=== PATIENT | female | born 1940 | race Caucasian/White ===

== ENCOUNTER → 2019-12-31 10:25 | Outpatient (BNVA) | payer MEDICARE, SELFPAY | PROVIDERS: Family Provider Family Medicine; PCP Family Medicine; Visit Provider Family Medicine | DX: E78.1 Pure hyperglyceridemia (principal); E89.0 Postprocedural hypothyroidism; I10 Essential (primary) hypertension; Z85.3 Personal history of malignant neoplasm of breast; M81.0 Age-related osteoporosis without current pathological fracture; M25.569 Pain in unspecified knee; G89.29 Other chronic pain; Z68.35 Body mass index [BMI] 35.0-35.9, adult; Z79.899 Other long term (current) drug therapy | CPT/HCPCS: 80053; 80061; 83036; 84439; 84443; 84481; 85025 ==

== ENCOUNTER → 2020-03-08 11:57 | Outpatient (BNVA) | payer MEDICARE, SELFPAY | PROVIDERS: Family Provider Family Medicine; PCP Family Medicine Adult Medicine; Visit Provider Family Medicine Adult Medicine | DX: E78.1 Pure hyperglyceridemia (principal); I10 Essential (primary) hypertension; E03.8 Other specified hypothyroidism; E66.9 Obesity, unspecified; Z68.30 Body mass index [BMI] 30.0-30.9, adult; Z79.899 Other long term (current) drug therapy | CPT/HCPCS: 80053; 80061; 84443; 85025 ==

== ENCOUNTER 2020-08-27 00:16 | Emergency (ER) | payer MEDICARE, SELFPAY ==
[2020-08-27 00:28] VITALS: BP 194/76; PULSE 71; RESP 18; TEMP 36.4; O2SAT 96; BMI 34.4
--- NOTE | 2020-08-27 01:10 | W.ED.EXTPRO ---
HPI - Extremity Problem General: Chief complaint: Extremity Problem,Nontraumatic Stated complaint: left leg pain Time Seen by Provider: 08/27/20 01:10 Source: patient Mode of arrival: ambulatory Limitations: no limitations History of Present Illness: HPI Narrative: 80-year-old female comes in today with complaints of left thigh pain. Patient does occasionally get leg cramps. Patient uses [id number] oral medication for leg cramps. Patient also takes her multivitamins. Patient has medical problems with coronary artery disease, hypothyroidism, osteoarthritis, hypertriglyceridemia, and hypertension. Patient appears chronically ill. Patient appears no acute distress. Patient appears in mild pain now. MD Complaint: extremity pain Onset (ago): hour(s) Pain Consistency: intermittent Location: left and lower extremity Quality: other (Cramping) Review of Systems General: Reports: 10 or more systems reviewed and unremarkable except in HPI and below Musc: Reports: other (Leg cramps) [facility] ED PFSH: Medical History (Updated 08/27/20 @ 01:39 by VIVIANA Siddiqui) Biceps rupture, distal CAD (coronary artery disease) Encounter for annual wellness exam in Medicare patient History of breast cancer Hypertension Hypertriglyceridemia Hypothalamic hypothyroidism Obesity (BMI 30-39.9) Osteoarthritis involving multiple joints on both sides of body Osteoporosis Surgical History History of mastectomy History of thyroidectomy, total History of tonsillectomy Social History Smoking and tobacco status: never smoked Alcohol intake: never Physical Exam Const: COMMON NORMALS: no acute distress and patient oriented x3 GENERAL APPEARANCE: cooperative HENMT: COMMON NORMALS: normocephalic and Normal external nose present HEAD & SCALP: normal to inspection and normocephalic NOSE: Normal external nose present Eye: GENERAL EYE: appearance normal, both eyes and all related structures Neck/C-Spine: COMMON NORMALS: full ROM Chest: COMMONS NORMALS: normal inspection of the chest Resp: COMMON NORMALS: normal respiratory effort EFFORT & INSPECTION: Yes able to speak in complete sentences Cardio: COMMON NORMALS: regular rate and regular rhythm RATE: regular rate RHYTHM: regular rhythm GI: COMMON NORMALS: non-tender : COMMON NORMALS: Yes no CVA tenderness BLADDER/KIDNEY EXAM: Yes no CVA tenderness Back/Pelvis: COMMON NORMALS: no CVA tenderness and thoracic and lumbar spine normal to inspection Extremity: COMMON NORMALS: normal to inspection NARRATIVE EXTREMITY EXAM: Patient moves left leg without any difficulty. Does have some mild tenderness on palpation to the thigh but also is similar in response with the right upper leg also. Small areas of good bruising is noted to both legs. Neuro: COMMON NORMALS: patient oriented x3 and moves all extremities Psych: COMMON NORMALS: mental status grossly normal and cooperative Skin: COMMON NORMALS: no rashes or lesions noted GENERAL SKIN EXAM: no rashes or lesions noted Course Vital Signs: Vital signs: Vital Signs Temperature 97.6 F 08/27/20 00:28 Pulse Rate 78 08/27/20 01:28 Respiratory Rate 18 08/27/20 00:28 Blood Pressure 194/76 08/27/20 00:28 Pulse Oximetry 96 08/27/20 00:28 MDM - Extremity (Nontraumatic) MDM Narrative: Medical decision making narrative: Patient comes in today for complaints of leg cramps to the left upper leg. Patient reports that the leg cramp has resolved. On exam patient has some areas of bruising to both expect lower extremities. Patient reports that she does get leg cramps often in both legs. Patient appears chronically ill. Patient appears no acute distress. Exam is unremarkable. Patient moves all extremities well. Differential diagnosis includes restless leg syndrome, electrolyte disturbance, claudication. Patient had good equal bilateral distal pulses in the dorsalis pedis area. No signs of redness or swelling was noted to the extremities. No signs of significant claudication was noted. Laboratory values were normal. Reviewed exam with patient with recommendations for follow-up or return to the ER. Patient reported understanding agreed to plan. Lab Data: Labs: Lab Results 08/27/20 Range/Units 01:40 Sodium 139 (136-145) mmol/L Potassium 3.5 (3.5-5.1) mmol/L Chloride 100 (98-107) mmol/L Carbon Dioxide 29 (22-29) mmol/L Anion Gap 13.5 (5-19) BUN 26 H (8-23) mg/dL Creatinine 1.0 H (0.5-0.9) mg/dL GFR Calculation Not Reportable Glucose 126 H (65-115) mg/dL Calculated Osmolal ity 294 (285-295) mOsm/k g Calcium 9.1 (8.5-10.5) mg/dL Magnesium 2.1 (1.7-2.3) mg/dL Discharge Plan Discharge Patient Disposition: Home Clinical Impression: Nocturnal leg cramps Condition: Stable Prescriptions: No Action meclizine 25 mg tablet,chewable 25 mg PO DAILY RF: 0 calcium-vitamin D2-iron Tablet PO RF: 0 vitamin B complex [B Complex-Vitamin B12] Tablet 1 tab PO DAILY RF: 0 quinine-vitamin E Capsule PO RF: 0 cholecalciferol (vitamin D3) 125 mcg (5,000 unit) capsule 125 mcg PO DAILY RF: 0 magnesium 250 mg tablet 250 mg PO DAILY RF: 0 Centrum Complete 18-400 mg-mcg tablet 1 tab PO DAILY RF: 0 acetaminophen [Tylenol] 325 mg capsule 325 mg PO QID PRNRF: 0 calcium carbonate [Calcium 500] 500 mg calcium (1,250 mg) tablet 500 mg PO DAILY 90 Days Qty: 90 RF: 3 hydrochlorothiazide 50 mg tablet 50 mg PO DAILY 90 Days Qty: 90 RF: 1 irbesartan 300 mg tablet 300 mg PO DAILY 90 Days Qty: 90 RF: 1 labetalol 200 mg tablet 200 mg PO BID 90 Days Qty: 180 RF: 1 levothyroxine 125 mcg tablet 125 mcg PO DAILY 90 Days Qty: 90 RF: 1 nitroglycerin 0.4 mg tablet, sublingual 0.4 mg SUBLINGUAL Q5M PRN (Reason: chest pain) Qty: 20 RF: 0 potassium chloride 10 mEq capsule, extended release 10 meq PO DAILY 90 Days Qty: 90 RF: 1 gemfibrozil 600 mg tablet 600 mg PO DAILY Qty: 30 RF: 5 hydrocodone-acetaminophen 5-325 mg tablet 1 tab PO DAILY PRN (Reason: moderate to severe pain) 30 Days Qty: 30 RF: 0 anastrozole 1 mg tablet 1 mg PO DAILY 90 Days Qty: 90 RF: 3 Discharge Orders: Discharge ED (Routine); Ordered 08/27/20 Ordered By: Darrell Marrero Referrals: Charly Fowler MD [Primary Care Provider] - Flaquita Zimmerman DO [Family Provider] - Patient Instructions: Leg Cramps (ED), Opioid Safety Activity Restrictions/Additional Instructions: Activity as tolerated. Gentle stretching and range of motion exercises prior to going to bed. Sometimes pedaling a stationary bike may assist with blood flow and help with leg cramps in the evening hours. Follow-up with primary care for further treatment. Return to the emergency department for new concerns. Coding Level of Care Code ED Creative Services Specialist for Summer Royal Exam Comprehensive
[2020-08-27 01:28] VITALS: PULSE 78
[2020-08-27 02:09] LABS: Anion Gap 13.5 (5-19); Blood Urea Nitrogen 26 mg/dL (8-23); Calcium 9.1 mg/dL (8.5-10.5); Carbon Dioxide 29 mmol/L (22-29); Chloride 100 mmol/L (98-107); Glucose 126 mg/dL (65-115); Magnesium 2.1 mg/dL (1.7-2.3); Osmolality Calculated 294 mOsm/kg (285-295); Potassium 3.5 mmol/L (3.5-5.1); Sodium 139 mmol/L (136-145)
[2020-08-27 02:47] VITALS: PULSE 81; RESP 16; O2SAT 97
== END 2020-08-27 02:47 | disposition home or self-care (01) ==
PROVIDERS: Emergency Provider Nurse Practitioner Family; Family Provider Family Medicine; PCP Family Medicine Adult Medicine
DX: G47.62 Sleep related leg cramps (principal); I25.10 Atherosclerotic heart disease of native coronary artery without angina pectoris; Z85.3 Personal history of malignant neoplasm of breast; I10 Essential (primary) hypertension
CPT/HCPCS: 80048; 83735; 99282

== ENCOUNTER → 2020-09-07 08:27 | Outpatient (BNVA) | payer MEDICARE, SELFPAY | PROVIDERS: Family Provider Family Medicine; PCP Family Medicine Adult Medicine; Referring Provider Family Medicine Adult Medicine; Visit Provider Specialist | DX: S46.219A Strain of muscle, fascia and tendon of other parts of biceps, unspecified arm, initial encounter (principal); X58.XXXA Exposure to other specified factors, initial encounter | CPT/HCPCS: 73080 ==

== ENCOUNTER → 2020-11-09 11:17 | Outpatient (BNVA) | payer MEDICARE, SELFPAY | PROVIDERS: Family Provider Family Medicine; PCP Family Medicine Adult Medicine; Visit Provider Family Medicine Adult Medicine | DX: E78.1 Pure hyperglyceridemia (principal); I25.10 Atherosclerotic heart disease of native coronary artery without angina pectoris; M25.569 Pain in unspecified knee; N18.2 Chronic kidney disease, stage 2 (mild); G89.29 Other chronic pain; M15.9 Polyosteoarthritis, unspecified; I10 Essential (primary) hypertension; E03.8 Other specified hypothyroidism | CPT/HCPCS: 80053; 80061; 84443 ==

== ENCOUNTER 2020-12-08 09:44 | Emergency (ER) | payer MEDICARE, SELFPAY ==
[2020-12-08 10:11] VITALS: BP 203/81; PULSE 78; RESP 16; TEMP 36.9; O2SAT 96; BMI 32.0
--- NOTE | 2020-12-08 12:29 | CT_ITS ---
WS: [id number] CT kidney stone [id number] REASON FOR EXAM: R sided abdominal/back pain IV CONTRAST ADMINISTERED: Noncontrast TOTAL EXAM DLP: 1211.[address] scans at [facility] use at least one of these dose optimization techniques: automat ed exposure control; mA and/or kV adjustment per patient size (includes targeted exams where dose is matched to clinical indication); or iterative reconstruction. FINDINGS: ABDOMEN: The unenhanced liver demonstrates multiple well-defined low-attenuation lesions within the liver 9 to 20 mm in diameter. They're found in both the left and right lobes the liver. In addition there is a thick dense circular calcification in the posterior aspect of the lower right lobe of the liver. The pancreas and spleen are unremarkable. The gallbladder has been surgically removed. Adrenal glands are normal. No intrarenal calculi, renal mass, or hydronephrosis. 4 mm hyperdense cyst in the right kidney, not significant. No abdominal mass, adenopathy, focal fluid collection, or free fluid. No bowel abnormality is identified. A normal appendix is not identified. 5 x 5 cm defect in the anterior abdominal wall with herniation of fat under the umbilicus. Pelvis: No mass, adenopathy, focal fluid collection, or free fluid is identified in the pelvis. The urinary bladder has a thickened wall without focal lesion. There are degenerative changes in the hips and the lumbar spine. No focal bone lesion. CT/CT kidney stone [id number] IMPRESSION: No urinary tract calculi identified. A normal appendix is not identified however no inflammatory changes are seen in the right lower quadrant. Calcified lesion in the liver is not significant likely representing a scleroti c cavernous hemangioma. The multiple liver lesions could represent multiple cys ts and/or cavernous hemangiomas, however no liver abnormality is identified on the review of previous ultrasound of the abdomen and CT scan of the abdomen in July 2018. Therefore these lesions would be suspect for metastatic disease.
--- NOTE | 2020-12-08 12:30 | ED_ITS ---
HPI - Abdominal Pain General: Chief Complaint: Abdominal Pain Stated Complaint: ABD PAIN Time Seen by Provider: 12/08/20 12:17 Source: patient Mode of arrival: ambulatory Limitations: no limitations History of Present Illness: HPI narrative: Patient is a nice 80-year-old female who presents to ED today with a complaint of right-sided abdominal back pain over the past 4 days. She describes the pain is constant with worsening with lying flat. Patient feels nauseous but has not had any episodes of emesis. She describes bowel movements as normal. She is not having any dysuria, hematuria, frequency or urgency. No fevers. Previous abdominal surgeries include a cholecystectomy, Meckel's diverticulum repair, and hysterectomy. MD elicited complaint: abdominal pain Pertinent past history: none Onset (ago): day(s) Pain Consistency: constant Location: RUQ and R flank Severity: moderate Migration to: no migration Exacerbating factors: other (lying flat) Relieving factors: nothing Associated Symptoms: Reports nausea; Denies change in stool character, chills, diarrhea, dysuria, fever(s) and vomiting Related Data: Patient : No Review of Systems Const: Denies: fever(s), chills, body aches, fatigue or malaise Card: Denies: chest pain Resp: Denies: dyspnea GI: Reports: abdominal pain and nausea; Denies: vomiting, diarrhea or change in stool character : Denies: difficulty voiding, dysuria, urinary frequency, urinary urgency or urinary hesitancy Musc: Denies: neck pain, extremity pain or joint pain Skin/Breast: Denies: rash Neuro: Denies: headache(s), numbness in extremities, weakness in extremities or sensory changes [facility] ED PFSH: Medical History (Updated 12/08/20 @ 14:15 by CAMILLE Teixeira) Biceps rupture, distal CAD (coronary artery disease) CKD (chronic kidney disease) stage 2, GFR 60-89 ml/min Encounter for annual wellness exam in Medicare patient History of breast cancer Hypertension Hypertriglyceridemia Hypothalamic hypothyroidism Obesity (BMI 30-39.9) Osteoarthritis involving multiple joints on both sides of body Osteoporosis Surgical History History of mastectomy History of thyroidectomy, total History of tonsillectomy Social History Smoking and tobacco status: never smoked Alcohol intake: never Physical Exam Const: COMMON NORMALS: no acute distress, patient oriented x3, no limitations and alert GENERAL APPEARANCE: cooperative NUTRITIONAL APPEARANCE: overweight ORIENTATION/CONSCIOUSNESS: Yes awake, Yes oriented to person, Yes oriented to place and Yes oriented to time HENMT: COMMON NORMALS: normocephalic and atraumatic HEAD & SCALP: normocephalic and atraumatic Resp: COMMON NORMALS: normal respiratory effort and clear to auscultation bilaterally AUSCULTATION: clear to auscultation bilaterally Cardio: COMMON NORMALS: regular rate and regular rhythm RATE: regular rate RHYTHM: regular rhythm GI: COMMON NORMALS: Normal to inspection, nondistended, normoactive bowel sounds present, Soft to palpation, No hepatosplenomegaly present and no masses INSPECTION: Yes normal to inspection PALPATION: Yes Soft to palpation, Yes Tenderness to palpation present (GI) Details: RUQ, Yes Guarding due to palpation present (GI) in the RUQ and Yes No hepatosplenomegaly present : COMMON NORMALS: Yes no CVA tenderness BLADDER/KIDNEY EXAM: Yes no CVA tenderness Back/Pelvis: COMMON NORMALS: no CVA tenderness Extremity: COMMON NORMALS: no calf tenderness and no pedal edema Neuro: COMMON NORMALS: patient oriented x3 SENSORIUM/ORIENTATION: Yes alert, Yes oriented to person, Yes oriented to place and Yes oriented to time Skin: COMMON NORMALS: no rashes or lesions noted GENERAL SKIN EXAM: no rashes or lesions noted Course Vital Signs: Vital signs: Vital Signs Temperature 98.5 F 12/08/20 10:11 Pulse Rate 78 12/08/20 10:11 Respiratory Rate 16 12/08/20 10:11 Blood Pressure 222/77 12/08/20 13:32 Pulse Oximetry 96 12/08/20 13:32 MDM - Abdominal Pain MDM Narrative: Medical decision making narrative: Patient is a nice 80-year- old female here for right upper quadrant abdominal pain over the past 4 days. Labs at this time are unremarkable. Vital signs are stable. CT scan showing multiple hepatic lesions that could be benign cysts or hemangiomas however after comparing it to previous imaging in 2019 radiologist stated these lesions were new since then, raising the suspicion for possible metastatic disease. She does have a previous history of breast cancer that was diagnosed and treated with a radical bilateral mastectomy in 2012. Patient will need a referral to GI in [place] for further evaluation. Patient will be discharged home with pain medications to use as needed. Lab Data: Labs: Lab Results 12/08/20 12/08/20 12/08/20 Range/Units 12:55 12:55 12:55 WBC 6.5 (4.0-10.0) 10^3/ uL RBC 4.44 (4.1-5.3) 10^6/u L Hgb 12.9 (11.5-15.3) g/dL Hct 38.4 (37.0-47.0) % MCV 86.5 (81-99) fL MCH 29.1 (28.0-34.0) pg MCHC 33.6 (30.0-36.0) g/dL RDW 12.5 (12.1-15.1) % Plt Count 256 (130-400) 10^3/c mm MPV 9.7 (7.4-10.4) fL Neut % (Auto) 61.3 % Lymph % (Auto) 27.0 % Schuyler % (Auto) 6.7 % Eos % (Auto) 3.8 % Baso % (Auto) 0.9 % Neut # (Auto) 4.00 (1.8-7.7) 10^3/u L Lymph # (Auto) 1.8 (0.8-4.8) 10^3/u L Schuyler # (Auto) 0.4 (0.2-0.9) 10^3/u L Eos # (Auto) 0.3 (0.0-0.8) 10^3/u L Baso # (Auto) 0.1 (0.0-0.1) 10^3/u L Nucleated RBC % (a uto) 0 % Nucleated RBCs # 0.0 /100WBC Sodium 139 (136-145) mmol/L Potassium 3.7 (3.5-5.1) mmol/L Chloride 99 (98-107) mmol/L Carbon Dioxide 28 (22-29) mmol/L Anion Gap 15.7 (5-19) BUN 21 (8-23) mg/dL Creatinine 0.9 (0.5-0.9) mg/dL GFR Calculation Not Reportable Glucose 116 H (65-115) mg/dL Calculated Osmolal ity 292 (285-295) mOsm/k g Calcium 9.3 (8.5-10.5) mg/dL Total Bilirubin 0.4 (0.15-1.2) mg/dL AST 19 (0-32) U/L ALT 9 (0-33) U/L Alkaline Phosphata se 142 H (35-105) IU/L Total Protein 7.8 (6.6-8.7) g/dL Albumin 4.4 (3.5-5.2) g/dL Globulin 3.4 (1.3-4.6) g/dL Lipase 34 (13-60) U/L Urine Color Yellow (Yellow) Urine Appearance Clear (CLEAR) Urine pH 5 (5-7) Ur Specific Gravit y 1.015 (1.005-1.030) Urine Protein Neg (Negative) Urine Glucose (UA) Norm (Normal) Urine Ketones Negative (Negative) Urine Blood Neg (Negative) Urine Nitrate Negative (Negative) Urine Bilirubin Neg (Negative) Urine Urobilinogen Neg (Negative) mg/dL Ur Leukocyte Rocio ase Negative (Negative) Discharge Plan Discharge Patient Disposition: Home Clinical Impression: Lesion of liver with high risk for malignant neoplasm Condition: Stable Prescriptions: New hydrocodone-acetaminophen 5-325 mg tablet 1 tab PO Q6H PRN (Reason: pain) Qty: 15 RF: 0 Discontinued hydrocodone-acetaminophen 5-325 mg tablet 0.5 tab PO Q8H PRN (Reason: moderate to severe pain) 30 Days Qty: 40 RF: 0 No Action calcium-vitamin D2-iron Tablet 10 tab PO Q2D RF: 0 vitamin B complex [B Complex-Vitamin B12] Tablet 1 tab PO DAILY@0730 RF: 0 cholecalciferol (vitamin D3) 125 mcg (5,000 unit) capsule 125 mcg PO DAILY@0730 RF: 0 acetaminophen [Tylenol] 325 mg capsule 325 mg PO QID PRN (Reason: Pain) RF: 0 nitroglycerin 0.4 mg tablet, sublingual 0.4 mg SUBLINGUAL Q5M PRN (Reason: chest pain) Qty: 20 RF: 0 Centrum Complete 18-400 mg-mcg Tablet 1 tab PO DAILY@0730 RF: 0 anastrozole 1 mg tablet 1 mg PO DAILY@0730 RF: 0 labetalol 200 mg tablet 100 mg PO QID RF: 0 hydrochlorothiazide 50 mg tablet 50 mg PO DAILY@729 RF: 0 Calcium 500 500 mg calcium (1,250 mg) tablet 500 mg PO Q2D RF: 0 gemfibrozil 600 mg tablet 600 mg PO DAILY@729 RF: 0 vitamin E 200 unit Tablet 200 unit PO DAILY@729 RF: 0 potassium chloride 10 mEq capsule, extended release 10 meq PO DAILY@729 RF: 0 levothyroxine 125 mcg tablet 125 mcg PO DAILY@729 RF: 0 Discharge Orders: Discharge ED (Routine); Ordered 12/08/20 Ordered By: Dagmar Briceño Referrals: Charly Fowler MD [Primary Care Provider] - Patient Instructions: Opioid Safety Activity Restrictions/Additional Instructions: [facility]. We are providing ALL patients with information regarding opiate safety. If you received opiate pain medication during your stay or if you received a prescription for opiate pain medication-please review this handout. If not, you may disregard. Thank you. As we discussed we are referring you to a GI provider in [place] for further evaluation of the lesions that were found on your liver today. As we discussed metastatic cancer needs to be definitively ruled out. Case management should contact you this week or early next week for this referral. You need to return to the emergency department for worsening or severe abdominal pain, yellowing of your skin or eyes, easy bruising, repetitive episodes of vomiting or diarrhea, feeling ill, or any other concerns you may have. Coding Level of Care Code ED Director Of Religious Activities for Summer Fwjoie Exam Comprehensive
[2020-12-08 13:06] LABS: Add Urine Microscopic? NO; Charge for UA Resulting for Rev
[2020-12-08 13:07] LABS: Basophils # 0.1 10^3/uL (0.0-0.1); Basophils % 0.9 %; Eosinophils # 0.3 10^3/uL (0.0-0.8); Eosinophils % 3.8 %; Hematocrit 38.4 % (37.0-47.0); Hemoglobin 12.9 g/dL (11.5-15.3); Lymphocytes # 1.8 10^3/uL (0.8-4.8); Mean Corpuscular HGB Conc 33.6 g/dL (30.0-36.0); Mean Corpuscular Hemoglobin 29.1 pg (28.0-34.0); Mean Corpuscular Volume 86.5 fL (81-99); Mean Platelet Volume 9.7 fL (7.4-10.4); Monocytes # 0.4 10^3/uL (0.2-0.9); Monocytes % 6.7 %; Neutrophils % 61.3 %; Nucleated Red Blood Cells % 0 %; Platelet Count 256 10^3/cmm (130-400); Red Blood Count 4.44 10^6/uL (4.1-5.3); Red Cell Distribution Width 12.5 % (12.1-15.1); White Blood Count 6.5 10^3/uL (4.0-10.0)
[2020-12-08 13:12] LABS: Bilirubin Urine Neg (Negative); Blood Urine Neg (Negative); Glucose Urine UA Norm (Normal); Ketones Urine Negative (Negative); Leukocyte Esterase Urine Negative (Negative); Nitrate Urine Negative (Negative); Protein Urine Neg (Negative); Specific Gravity, Urine 1.015 (1.005-1.030); Urine Appearance Clear (CLEAR); Urine Color Yellow (Yellow); Urobilinogen Urine Neg (Negative); pH Urine 5 (5-7)
[2020-12-08 13:28] LABS: Alanine Aminotransferase 9 U/L (0-33); Albumin Level 4.4 g/dL (3.5-5.2); Alkaline Phosphatase 142 IU/L (35-105); Anion Gap 15.7 (5-19); Aspartate Amino Transferase 19 U/L (0-32); Blood Urea Nitrogen 21 mg/dL (8-23); Calcium 9.3 mg/dL (8.5-10.5); Carbon Dioxide 28 mmol/L (22-29); Chloride 99 mmol/L (98-107); Globulin 3.4 g/dL (1.3-4.6); Glucose 116 mg/dL (65-115); Lipase 34 U/L (13-60); Osmolality Calculated 292 mOsm/kg (285-295); Potassium 3.7 mmol/L (3.5-5.1); Sodium 139 mmol/L (136-145); Total Bilirubin 0.4 mg/dL (0.15-1.2); Total Protein 7.8 g/dL (6.6-8.7)
[2020-12-08 13:32] VITALS: BP 222/77; O2SAT 96
[2020-12-08 14:27] VITALS: BP 183/72; PULSE 84; O2SAT 96
--- NOTE | 2020-12-13 11:19 | DCPLANNER ---
business insight and analytics manager had message to schedule a follow up appointment for patient with GI in [place]. business insight and analytics manager called and spoke with patients daughter about referral to see if patient wanted to be referred to [facility] or [facility]. Patients daughter stated to refer patient to [facility]. business insight and analytics manager faxed patients information to [facility] Clinic will call patient with appointment information.
== END 2020-12-08 14:27 | disposition home or self-care (01) ==
PROVIDERS: Emergency Provider Physician Assistant; PCP Family Medicine Adult Medicine
DX: K76.9 Liver disease, unspecified (principal); I12.9 Hypertensive chronic kidney disease with stage 1 through stage 4 chronic kidney disease, or unspecified chronic kidney disease; N18.2 Chronic kidney disease, stage 2 (mild); I25.10 Atherosclerotic heart disease of native coronary artery without angina pectoris; E78.1 Pure hyperglyceridemia; E66.9 Obesity, unspecified; Z68.32 Body mass index [BMI] 32.0-32.9, adult; Z85.3 Personal history of malignant neoplasm of breast; Z90.13 Acquired absence of bilateral breasts and nipples; Z90.49 Acquired absence of other specified parts of digestive tract
CPT/HCPCS: 74176; 80053; 81003; 83690; 85025; 99282

== ENCOUNTER 2021-07-17 18:40 | Emergency (ER) | payer MEDICARE, SELFPAY ==
[2021-07-17 18:43] VITALS: BP 221/94; PULSE 75; RESP 18; TEMP 36.5; O2SAT 98; BMI 31.1
--- NOTE | 2021-07-17 18:48 | XRR_ITS ---
PROCEDURE INFORMATION: Exam: XR Chest Exam date and time: 07/17/2021 6:48 PM Age: 81 years old Clinical indication: On breathing; Patient HX: Chest pain radiating to back TECHNIQUE: Imaging protocol: XR of the chest. Views: 1 view. COMPARISON: CT kidney stone [id number] 12/08/2020 12:48 PM FINDINGS: Lungs: Unremarkable. No consolidation. Pleural spaces: Unremarkable. No pleural effusion. No pneumothorax. Heart/Mediastinum: Unremarkable. No cardiomegaly. Bones/joints: Unremarkable. XR/XR chest 1V portable [id number] IMPRESSION: No acute findings.
--- NOTE | 2021-07-17 18:48 | ECG_ITS ---
[facility] Test Date: 2021-07-17 Pat Name: Yoselin Brand Department: Room: Gender: Female Cardiac/Vascular Sonographer: : 1940 Requested By: Dagmar Briceño Order Number: [id number] Kourtney MD: Marta Wilder M.D. Measurements Intervals [place] Rate: 72 P: 42 MD: 162 QRS: -7 QRSD: 98 T: 66 QT: 394 QTc: 434 Interpretive Statements SINUS RHYTHM INCOMPLETE RIGHT BUNDLE BRANCH BLOCK [90+ ms QRS DURATION, TERMINAL R IN V1/V2, 40+ ms S IN I/aVL/V4/V5/V6] SEPTAL MYOCARDIAL INFARCTION , OF INDETERMINATE AGE [40+ ms Q WAVE IN V1/V2] No previous ECG available for comparison Electronically Signed On 07-18-2021 8:00:43 OCULAR CARE AIDE by Marta Wilder M.D. [email or web address]
--- NOTE | 2021-07-17 18:55 | CTR_ITS ---
PROCEDURE INFORMATION: Exam: CTA Chest With Contrast Exam date and time: 07/17/2021 6:55 PM Age: 81 years old Clinical indication: Abdominal pain; Chest pressure; Prior surgery; Surgery type: Mastectomy; Patient HX: C/O chest/epigastric pain with radiation to upper back. ; Additional info: Cp/abd pain TECHNIQUE: Imaging protocol: Computed tomographic angiography of the chest with contrast. 3D rendering (Not supervised by radiologist): MIP and/or 3D reconstructed images were created by the technologist. Radiation optimization: All CT scans at this facility use at least one of these dose optimization techniques: automated exposure control; mA and/or kV adjustment per patient size (includes targeted exams where dose is matched to clinical indication); or iterative reconstruction. Contrast material: VISI 320; Contrast volume: 95 ml; Contrast route: INTRAVENOUS (IV); COMPARISON: CR (CHEST, ) 07/17/2021 6:56 PM RADIATION DOSE METRICS: Total DLP (mGy-cm): 1088.71 FINDINGS: Pulmonary arteries: Normal. No pulmonary emboli. Aorta: Diffuse calcified plaques of thoracic aorta. No aneurysm. No dissection. No intramural hematoma. Lungs: Several noncalcified pulmonary nodules are identified in the right lung. For example, nodule in the anterolateral right lower lobe on axial series 2, image 276 measures 5 mm transverse diameter. Ovoid subpleural nodule in the posterolateral right lower lobe measures 7 mm transverse diameter on axial series 2, image 323. No focal airspace consolidation. Negative for endobronchial obstruction. No peripheral honeycombing. No bronchiectasis. Pleural spaces: Unremarkable. No pneumothorax. No pleural effusion. Heart: No coronary artery calcifications seen. Lymph nodes: Unremarkable. No enlarged lymph nodes. Bones/joints: Unremarkable. No acute fracture. Soft tissues: Unremarkable. Chest at 18-24 months. (Reference: Charleyhotraci) REFERENCES: Charleyhotraci H, et al. Guidelines for Management of Incidental Pulmonary Nodules Detected on CT Images: From the Fleischner Society 2017. Radiology. 2017;284(1):228-243. PROCEDURE INFORMATION: Exam: CT Abdomen And Pelvis With Contrast Exam date and time: 07/17/2021 6:55 PM Age: 81 years old Clinical indication: Abdominal pain; Chest pressure; Prior surgery; Surgery type: Mastectomy; Patient HX: C/O chest/epigastric pain with radiation to upper back. ; Additional info: Cp/abd pain TECHNIQUE: Imaging protocol: Computed tomography of the abdomen and pelvis with contrast. Radiation optimization: All CT scans at this facility use at least one of these dose optimization techniques: automated exposure control; mA and/or kV adjustment per patient size (includes targeted exams where dose is matched to clinical indication); or iterative reconstruction. Contrast material: VISI 320; Contrast volume: 95 ml; Contrast route: INTRAVENOUS (IV); COMPARISON: CR (CHEST, ) 07/17/2021 6:56 PM RADIATION DOSE METRICS: Total DLP (mGy-cm): 1088.71 FINDINGS: Liver: Several simple liver cysts. Gallbladder and bile ducts: Cholecystectomy. Negative for biliary system dilation. Pancreas: Normal. No ductal dilation. Spleen: Normal. No splenomegaly. Adrenal glands: Normal. No mass. Kidneys and ureters: Normal. No hydronephrosis. Stomach and bowel: Unremarkable. No obstruction. No mucosal thickening. Appendix: No evidence of appendicitis. Intraperitoneal space: Unremarkable. No free air. No significant fluid collection. Vasculature: Diffuse abdominal aorta atherosclerosis. No aneurysm. No dissection. No acute vascular occlusion. 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 Lymph nodes: Unremarkable. No enlarged lymph nodes. Urinary bladder: Unremarkable as visualized. Reproductive: Hysterectomy. Bones/joints: The lumbar spine demonstrates moderate discogenic and apophyseal joint degenerative changes at multiple levels. Soft tissues: Fat containing umbilical hernia. Fat containing hernia in the lateral left lower abdominal wall. CT/CT angio chest w abd pel w con IMPRESSION: 1. Negative CT angiogram of the chest. No acute abnormality. 2. Several small pulmonary nodules. 3. For patients at low risk (minimal or absent history of smoking and of other known risk factors), recommend CT Chest at 3-6 months, then consider CT Chest at 18-24 months. For patients at high risk (history of smoking or of other known risk factors), recommend CT Chest at 3-6 months, then CT IMPRESSION: Negative CT abdomen and pelvis. No acute abnormality.
--- NOTE | 2021-07-17 18:57 | ED_ITS ---
HPI - Chest Pain General: Chief Complaint: Chest Pain Stated Complaint: Chest Pain\SOB\ Time Seen by Provider: 07/17/21 18:48 Source: patient Mode of arrival: ambulatory Limitations: no limitations History of Present Illness: 81-year-old female states over the last 3 days she has been having epigastric abdominal pain that seems to radiate into her chest and her shoulder. States pain is sharp and pressure at times denies any worsening improving factors she has had no vomiting no diarrhea. No history of heart disease. She denies any worsening improving factors. Associated symptoms: Reports abdominal pain; Deny dyspnea or fever(s) Review of Systems Const: Denies: fever(s), chills, body aches or change in appetite Eyes: Denies: blurry vision or eye discomfort ENMT: Denies: throat pain or dental pain Card: Reports: chest pain Resp: Denies: dyspnea GI: Reports: abdominal pain : Denies: dysuria Musc: Denies: neck pain or back pain Skin/Breast: Denies: rash Neuro: Denies: headache(s) Psych: Denies: depression Kevin/Lymph: Denies: easy bruising All/Imm: Denies: urticaria PFSH ED PFSH: Medical History Biceps rupture, distal CAD (coronary artery disease) CKD (chronic kidney disease) stage 2, GFR 60-89 ml/min Encounter for annual wellness exam in Medicare patient History of breast cancer Hypertension Hypertriglyceridemia Hypothalamic hypothyroidism Obesity (BMI 30-39.9) Osteoarthritis involving multiple joints on both sides of body Osteoporosis Surgical History History of mastectomy History of thyroidectomy, total History of tonsillectomy Social History Smoking and tobacco status: never smoked Alcohol intake: never Physical Exam Const: COMMON NORMALS: no acute distress, patient oriented x3 and healthy appearing HENMT: COMMON NORMALS: normocephalic and atraumatic HEAD & SCALP: normocephalic and atraumatic Eye: COMMON NORMALS: Equal, round and reactive pupils present and EOMs intact bilaterally PUPIL: Yes Equal, round and reactive pupils present Neck/C-Spine: COMMON NORMALS: full ROM and supple Chest: COMMONS NORMALS: normal inspection of the chest and normal palpation of entire chest wall Resp: COMMON NORMALS: normal respiratory effort, No retractions, No use of accessory muscles and clear to auscultation bilaterally AUSCULTATION: clear to auscultation bilaterally Cardio: COMMON NORMALS: regular rate, regular rhythm and No murmurs present (Cardio) RATE: regular rate RHYTHM: regular rhythm GI: COMMON NORMALS: Normal to inspection, nondistended, normoactive bowel sounds present, Soft to palpation and no masses PALPATION: Yes Soft to palpation OTHER: epigastric tenderness Extremity: COMMON NORMALS: normal to inspection and full ROM Neuro: COMMON NORMALS: patient oriented x3, moves all extremities and no focal motor deficits Psych: COMMON NORMALS: mental status grossly normal, Normal thought process present and cooperative THOUGHT PROCESS: Normal thought process present Skin: COMMON NORMALS: no rashes or lesions noted and no wounds GENERAL SKIN EXAM: no rashes or lesions noted Course Vital Signs: Vital signs: Vital Signs Temperature 97.7 F 07/17/21 18:43 Pulse Rate 75 07/17/21 18:43 Respiratory Rate 18 07/17/21 18:43 Blood Pressure 221/94 07/17/21 18:43 Pulse Oximetry 98 07/17/21 18:43 MDM - Chest Pain Medical Decision Making Patient presents here with chest pains atypical in nature. Pain seems to be on for upper abdomen patient's CT of abdomen along with chest and blood work is all normal troponins are negative she is well-appearing here feels improved we will start her on Protonix she is to follow-up with PCP and return if worsening she understands agrees to plan. Lab Data : 07/17/21 19:00 07/17/21 19:00 Radiology Impressions Chest X-Ray 07/17/21 18:48 IMPRESSION: No acute findings. Chest/Abdomen/Pelvis CT 07/17/21 18:55 IMPRESSION: 1. Negative CT angiogram of the chest. No acute abnormality. 2. Several small pulmonary nodules. 3. For patients at low risk (minimal or absent history of smoking and of other known risk factors), recommend CT Chest at 3-6 months, then consider CT Chest at 18-24 months. For patients at high risk (history of smoking or of other known risk factors), recommend CT Chest at 3-6 months, then CT IMPRESSION: Negative CT abdomen and pelvis. No acute abnormality. Laboratory Results WBC 7.5 10^3/uL (4.0-10.0) 07/17/21 19:00 RBC 4.08 10^6/uL (4.1-5.3) L 07/17/21 19:00 Hgb 11.7 g/dL (11.5-15.3) 07/17/21 19:00 Hct 35.9 % (37.0-47.0) L 07/17/21 19:00 MCV 88.0 fl (81-99) 07/17/21 19:00 MCH 28.7 pg (28.0-34.0) 07/17/21 19: MCHC 32.6 g/dL (30.0-36.0) 07/17/21 19:00 RDW 12.8 % (12.1-15.1) 07/17/21 19:00 Plt Count 254 10^3/cmm (130-400) 07/17/21 19:00 MPV 10.3 fL (7.4-10.4) 07/17/21 19:00 Neut % (Auto) 57.6 % 07/17/21 19:00 Lymph % (Auto) 27.9 % 07/17/21 19:00 Vernon % (Auto) 8.7 % 07/17/21 19:00 Eos % (Auto) 4.4 % 07/17/21 19:00 Baso % (Auto) 0.9 % 07/17/21 19:00 Neut # (Auto) 4.31 10^3/uL (1.8-7.7) 07/17/21 19:00 Lymph # (Auto) 2.1 10^3/uL (0.8-4.8) 07/17/21 19:00 Vernon # (Auto) 0.7 10^3/uL (0.2-0.9) 07/17/21 19:00 Eos # (Auto) 0.3 10^3/uL (0.0-0.8) 07/17/21 19:00 Baso # (Auto) 0.1 10^3/uL (0.0-0.1) 07/17/21 19:00 Nucleated RBC % (auto) 0 % 07/17/21 19:00 Nucleated RBCs # 0.0 /100WBC 07/17/21 19:00 Sodium 138 mmol/L (136-145) 07/17/21 19:00 Potassium 3.9 mmol/L (3.5-5.1) 07/17/21 19:00 Chloride 100 mmol/L (98-107) 07/17/21 19:00 Carbon Dioxide 24 mmol/L (22-29) 07/17/21 19:00 Anion Gap 17.9 (5-19) 07/17/21 19:00 BUN 41 mg/dL (8-23) H 07/17/21 19:00 Creatinine 1.2 mg/dL (0.5-0.9) H 07/17/21 19:00 GFR Calculation Not Reportable 07/17/21 19:00 Glucose 121 mg/dL (65-115) H 07/17/21 19:00 Calculated Osmolality 297 mOsm/kg (285-295) H 07/17/21 19:00 Calcium 9.7 mg/dL (8.5-10.5) 07/17/21 19:00 Total Bilirubin 0.3 mg/dL (0.15-1.2) 07/17/21 19:00 AST 19 U/L (0-32) 07/17/21 19:00 ALT 12 U/L (0-33) 07/17/21 19:00 Alkaline Phosphatase 149 IU/L (35-105) H 07/17/21 19:00 Troponin T Baseline 12 ng/L (0-10) H 07/17/21 19:00 Troponin T 120 Minute 12.17 ng/L (0-10) H 07/17/21 21:14 Delta Troponin T 0.17 ABS# (0-10) 07/17/21 21:14 NT-Pro-B Natriuret Pep 161 pg/mL (0-450) 07/17/21 19:00 Total Protein 7.9 g/dL (6.6-8.7) 07/17/21 19:00 Albumin 4.5 g/dL (3.5-5.2) 07/17/21 19:00 Globulin 3.4 g/dL (1.3-4.6) 07/17/21 19:00 Lipase 58 U/L (13-60) 07/17/21 19:00 EKG Data EKG 1: I personally reviewed and interpreted this EKG as follows: EKG interpretation date: 07/17/21 EKG interpretation time: 18:53 Interpretation: nsr hr [address] or t wave abnormalities qrs 98 qtc 419 EKG 2: I personally reviewed and interpreted this EKG as follows: EKG interpretation date: 07/17/21 EKG interpretation time: 20:55 Interpretation: nsr hr [address] or t wave abnormalities qrs 100 tc 450 Discharge Plan Discharge Patient Disposition: Home Clinical Impression: Chest pain, Abdominal pain Condition: Stable Prescriptions: New Protonix 40 mg tablet,delayed release (DR/EC) 40 mg PO DAILY Qty: 60 0RF No Action calcium-vitamin D2-iron Tablet 10 tab PO Q2D 0RF Rx Instructions: ALTERNATE DAYS WITH THE CALCIUM CARBONATE vitamin B complex [B Complex-Vitamin B12] Tablet 1 tab PO DAILY@0730 0RF cholecalciferol (vitamin D3) 125 mcg (5,000 unit) capsule 125 mcg PO DAILY@30 0RF acetaminophen [Tylenol] 325 mg capsule 325 mg PO QID PRN (Reason: Pain) 0RF nitroglycerin 0.4 mg tablet, sublingual 0.4 mg SUBLINGUAL Q5M PRN (Reason: chest pain) Qty: 20 0RF Rx Instructions: do not exceed 3 doses per episode anastrozole 1 mg tablet 1 mg PO DAILY@30 0RF labetalol 200 mg tablet 100 mg PO QID 0RF calcium carbonate [Calcium 500] 500 mg calcium (1,250 mg) tablet 500 mg PO Q2D 0RF Rx Instructions: ALTERNATE DAYS WITH THE CALCIUM-VITAMIN D2-IRON gemfibrozil 600 mg tablet 600 mg PO DAILY@729 0RF potassium chloride 10 mEq capsule, extended release 10 meq PO DAILY@0730 0RF levothyroxine 125 mcg tablet 125 mcg PO DAILY@0730 0RF hydrocodone-acetaminophen 5-325 mg tablet 1 tab PO Q6H PRN (Reason: pain) Qty: 15 0RF vitamin E 200 unit Capsule 200 unit PO DAILY 0RF losartan 25 mg tablet 25 mg PO DAILY 0RF hydrochlorothiazide 25 mg tablet 25 mg PO DAILY 0RF Centrum Women 18-400 mg-mcg Tablet 1 tab PO DAILY 0RF Discharge Orders: Discharge ED (Routine); Ordered 07/17/21 Ordered By: Korby Dione Referrals: Charly Fowler MD [Primary Care Provider] - Discharge Diet: Advance as tolerated Discharge Activity: Resume usual activity Patient Instructions: Abdominal Pain (ED) Coding Level of Care Code ED Ambulance Officer for Chg Fwd Exam Comprehensive
[2021-07-17] MEDS: aspirin 81 mg Chew Tablet 324 MG PO (18:59)
[2021-07-17] MEDS: nitroglycerin 0.4 mg sublingual Tablet SUBLINGUAL (19:01)
[2021-07-17 19:12] LABS: Basophils # 0.1 10^3/uL (0.0-0.1); Basophils % 0.9 %; Eosinophils # 0.3 10^3/uL (0.0-0.8); Eosinophils % 4.4 %; Hematocrit 35.9 % (37.0-47.0); Hemoglobin 11.7 g/dL (11.5-15.3); Lymphocytes # 2.1 10^3/uL (0.8-4.8); Lymphocytes % 27.9 %; Mean Corpuscular HGB Conc 32.6 g/dL (30.0-36.0); Mean Corpuscular Hemoglobin 28.7 pg (28.0-34.0); Mean Platelet Volume 10.3 fL (7.4-10.4); Monocytes # 0.7 10^3/uL (0.2-0.9); Monocytes % 8.7 %; Neutrophils # 4.31 10^3/uL (1.8-7.7); Neutrophils % 57.6 %; Nucleated Red Blood Cells % 0 %; Platelet Count 254 10^3/cmm (130-400); Red Blood Count 4.08 10^6/uL (4.1-5.3); Red Cell Distribution Width 12.8 % (12.1-15.1); White Blood Count 7.5 10^3/uL (4.0-10.0)
[2021-07-17 19:34] LABS: Troponin(5th) Baseline 12 ng/L (0-10)
[2021-07-17 19:41] LABS: Alanine Aminotransferase 12 U/L (0-33); Albumin Level 4.5 g/dL (3.5-5.2); Alkaline Phosphatase 149 IU/L (35-105); Anion Gap 17.9 (5-19); Aspartate Amino Transferase 19 U/L (0-32); Blood Urea Nitrogen 41 mg/dL (8-23); Calcium 9.7 mg/dL (8.5-10.5); Carbon Dioxide 24 mmol/L (22-29); Chloride 100 mmol/L (98-107); Creatinine Clr Calc Pharmacy 35.9505; Globulin 3.4 g/dL (1.3-4.6); Glucose 121 mg/dL (65-115); Lipase 58 U/L (13-60); NT Pro B Type Natriuretic Pept 161 pg/mL (0-450); Osmolality Calculated 297 mOsm/kg (285-295); Potassium 3.9 mmol/L (3.5-5.1); Sodium 138 mmol/L (136-145); Total Bilirubin 0.3 mg/dL (0.15-1.2); Total Protein 7.9 g/dL (6.6-8.7)
[2021-07-17] MEDS: hydrocortisone 100 mg/2 mL SDV IVP (20:06)
[2021-07-17] MEDS: diphenhydrAMINE 50 mg/mL SDV 1mL IVP (20:06)
[2021-07-17 20:17] VITALS: BP 232/86; PULSE 78; O2SAT 97
[2021-07-17] MEDS: hyDRALAzine 20 mg/mL INJ 1 mL 10 MG IVP ×2 (20:17→21:47)
[2021-07-17] MEDS: iodixanol 320 mg/mL 100mL Btl IV (20:40)
--- NOTE | 2021-07-17 20:48 | ECG_ITS ---
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 Measurements Intervals Spelter Rate: 71 P: 41 NE: 187 QRS: -35 QRSD: 100 T: 76 QT: 428 QTc: 466 Interpretive Statements SINUS RHYTHM LEFT AXIS DEVIATION [QRS AXIS < -30] INCOMPLETE RIGHT BUNDLE BRANCH BLOCK [90+ ms QRS DURATION, TERMINAL R IN V1/V2, 40+ ms S IN I/aVL/V4/V5/V6] MODERATE VOLTAGE CRITERIA FOR LVH, CONSIDER NORMAL VARIANT [MEETS CRITERIA IN ONE OF: R(aVL), S(V1), R(V5), R(V5/V6)+S(V1)] POSSIBLE SEPTAL MYOCARDIAL INFARCTION , OF INDETERMINATE AGE [30 ms Q WAVE IN V1/V2] WARNING: DATA QUALITY MAY AFFECT INTERPRETATION No previous ECG available for comparison Electronically Signed On 07-18-2021 8:02:22 STRATEGIC ACCOUNT MANAGER by Marta Wilder M.D. [id number]
[2021-07-17 21:49] LABS: Troponin 5 2HR 12.17 ng/L (0-10)
[2021-07-17 21:53] LABS: Troponin 5 2HR Delta 0.17 ABS# (0-10)
[2021-07-17 22:10] VITALS: BP 213/72; PULSE 83; O2SAT 98
== END 2021-07-17 22:31 | disposition home or self-care (01) ==
PROVIDERS: Physician Assistant; Emergency Provider Emergency Medicine; PCP Family Medicine Adult Medicine
DX: R07.9 Chest pain, unspecified (principal); R10.9 Unspecified abdominal pain; I25.10 Atherosclerotic heart disease of native coronary artery without angina pectoris; I12.9 Hypertensive chronic kidney disease with stage 1 through stage 4 chronic kidney disease, or unspecified chronic kidney disease; N18.2 Chronic kidney disease, stage 2 (mild); Z85.3 Personal history of malignant neoplasm of breast
CPT/HCPCS: 71045; 71275; 74177; 80053; 83690; 83880; 84484; 85025; 93005; 96374; 96375; 96376; 99284; J0360; J1200; J1720; Q9967

== ENCOUNTER → 2022-07-06 09:46 | Outpatient (BNVA) | payer MEDICARE, SELFPAY | PROVIDERS: PCP Family Medicine; Visit Provider Family Medicine | DX: E03.9 Hypothyroidism, unspecified (principal); E55.9 Vitamin D deficiency, unspecified; I10 Essential (primary) hypertension; Z13.220 Encounter for screening for lipoid disorders; E03.8 Other specified hypothyroidism; R91.8 Other nonspecific abnormal finding of lung field; R07.9 Chest pain, unspecified; Z51.81 Encounter for therapeutic drug level monitoring | CPT/HCPCS: 80053; 80061; 82306; 84439; 84443; 84481; 85025 ==

== ENCOUNTER 2022-07-23 14:27 | Outpatient (CLI) | payer MEDICARE, SELFPAY ==
--- NOTE | 2022-07-23 14:30 | CT_ITS ---
WS: [id number] CT CHEST WITH INTRAVENOUS CONTRAST HISTORY: Lung nodules TECHNIQUE: Contiguous 5 mm axial imaging performed on the thorax. Coronal and sagittal reformats are submitted. All CT scans at [facility] use at least one of these dose optimization techniques: automated exposure control; mA and/or kV adjustment per patient size (includes targeted exams where dose is matched to clinical indication); or iterative reconstruction. CONTRAST: Omnipaque 350; 100 mL IV. DLP: 309.61 mGy.cm COMPARISON: 07/17/2021 Lungs and central airway: The previously described pulmonary nodules are much less apparent. These no dules have essentially resolved. There is a micronodule at the LEFT lung base measuring less than 3 m m. No pneumonia. Pleura: Normal. No pleural effusion. Heart and pericardium: Normal size heart with no pericardial effusion. Mediastinum and rosa: No mediastinum or hilar adenopathy. Vessels: Moderate atherosclerotic plaque in aorta. Plaque continues into the proximal great vessels. Mild pulmonary artery enlargement. Chest wall and lower neck: RIGHT thyroid is absent. Upper abdomen: Multiple hepatic cysts. The largest in the RIGHT lobe measures 2.0 cm. No solid mass o r bile duct dilatation. Prior cholecystectomy. No bile duct dilatation. Normal pancreas. Normal splee n. Visualized kidneys are negative. Osseous structures: No destructive process. CT/CT chest w con* [id number] IMPRESSION: 1. Previously described pulmonary nodules are not apparent today. There is a s mall micronodule LEFT lower lobe which is unchanged. No pneumonia. 2. Mild pulmonary enlargement. 3. Moderate atherosclerosis aorta. 4. Hepatic cysts. 5. Prior cholecystectomy.
[2022-07-23] MEDS: iohexol 350 mg/mL 500 mL Btl (per mL) IV (15:15)
== END 2022-07-23 14:28 | disposition home or self-care (01) ==
LOC: RAD 14:30
PROVIDERS: PCP Family Medicine; Visit Provider Family Medicine
DX: R91.8 Other nonspecific abnormal finding of lung field (principal); Z90.49 Acquired absence of other specified parts of digestive tract; K76.89 Other specified diseases of liver; I70.0 Atherosclerosis of aorta
CPT/HCPCS: 71260; Q9967

== ENCOUNTER 2022-08-23 09:10 | Outpatient (CLI) | payer MEDICARE, SELFPAY ==
--- NOTE | 2022-08-23 | ECG_ITS ---
[facility] Test Date: 2022-08-23 Pat Name: Yoselin Brand Department: Room: Gender: Female Field Professional: Lyudmila Nava : 1940 Requested By: El Munoz Order Number: [id number] Kourtney MD: Corky Chua M.D. Interpretive Statements NAME OF STUDY: LEXISCAN SESTAMIBI STRESS TEST INDICATION: Chest Pain, PROCEDURE: At the baseline, the EKG revealed normal sinus rhythm with a normal ST Ts. Poor R wave progression. Left axis deviation. The baseline heart was 74 bpm with a blood pressue of 173/78 mm of Hg Lexiscan was infused over a period of 20 seconds. A total of 0.4 milligrams of Lexiscan was infused. The stress phase was continued for a total of 5 minutes. Heart rate at the end of the stress phase was 89 bpm with a blood pressure 141/40 mm of Hg. The EKG at the peak infusion revealed no significant changes. Sestamibi was injected 20 seconds after the Lexiscan infusion. Heart rate at the end of the recovery phase was 86 bpm with a blood pressure of 140/37 mm of Hg. CONCLUSION: 1. No significant EKG changes with the LexiScan infusion 2. No LexiScan induced chest pain or cardiac arrhythmia 3. Normal blood pressure and heart rate response 4. Sestamibi/sestamibi perfusion scan pending; see separate report. Electronically Signed On 08-26-2022 17:10:11 CDT by Corky Chua M.D. [id number]
[2022-08-23 10:05] VITALS: BMI 30.2
--- NOTE | 2022-08-23 10:07 | NMCV_ITS ---
NM juliane perf SPECT r/s* [id number] Yoselin Brand Age: 82 Gender: F : 1940 Exam Date: 08/23/2022 10:07 Ordering Phys: El Kapoor MD Technologist: YONIS Tenorio Exam Location: [facility] Indications: CHEST PAIN STRESS TEST [facility] IMAGE PROTOCOL Rest/Stress 1 Lexiscan Day Radiopharmaceutical Dose (mCi) Administration Site Administered by Rest: Tc-99m 10.4 IV YONIS Arguello Sestamibi Stress:Tc-99m 32.8 IV YONIS Arguello Sestamibi Rest: 23-Aug-2022 60 Discovery 630 Stress: 23-Aug-2022 30 Discovery 630 0.4mg Lexiscan. Supine position only as patient was unable to lay prone. SPECT RESULTS Technical Quality: Excellent Raw Data Analysis: Normal Image Corrections: No attenuation or motion correction applied Summed Stress Score: 6 Summed Rest Score: 12 Summed Difference Score: 0 PERFUSION FINDINGS Moderate area of moderately decreased eccentric in the basal and mid inferior, inferolateral and apical lateral regions. No significant reversibility was noted in these regions FUNCTIONAL RESULTS (calculated via Gated SPECT) Stress Image LV EF (%): 95 Stress EDV (mL):63 TID: 0.72 Stress ESV (mL):3 FUNCTIONAL FINDINGS: Segmental wall motion analysis revealing no gross wall motion abnormalities IMPRESSIONS 1. Myocardial perfusion imaging revealing moderate area of persistent decreased tracer uptake involving the inferior and inferolateral regions, most likely represent additional artifact. 2. Normal LV ejection fraction of 95% -This could be misleading because of the extremely low left ventricular volume 3. LV wall motion analysis revealing no gross wall motion abnormalities. 4. Normal LV volume. Low probability for coronary ischemia, based on the above findings Dr Corky Chua MD [facility] (Electronically Signed) Final Date: 23 August 2022 18:52 S
[2022-08-23 11:15] VITALS: BP 140/37; PULSE 85
--- NOTE | 2022-08-23 11:16 | PC.NURSE ---
Patient in Cardiac Diagnostic Lab for chemical stress test. Blood pressure 227/78. Notified Dr. Chua, allergy specialist. Orders received, see MAR.
[2022-08-23] MEDS: hyDRALAzine 50 mg Tablet PO (11:20)
[2022-08-23] MEDS: regadenoson 0.4 Mg/5 ml Syringe IVP (11:48)
== END 2022-08-23 09:11 | disposition home or self-care (01) ==
PROVIDERS: PCP Family Medicine; Visit Provider Family Medicine
DX: R07.9 Chest pain, unspecified (principal)
CPT/HCPCS: 36415; 78452; 93017; 96374; A9500; J2785

== ENCOUNTER → 2022-11-14 10:26 | Outpatient (BNVA) | payer MEDICARE, SELFPAY | PROVIDERS: PCP Family Medicine; Visit Provider Internal Medicine Cardiovascular Disease | DX: I25.10 Atherosclerotic heart disease of native coronary artery without angina pectoris (principal); I12.9 Hypertensive chronic kidney disease with stage 1 through stage 4 chronic kidney disease, or unspecified chronic kidney disease; N18.2 Chronic kidney disease, stage 2 (mild); R10.31 Right lower quadrant pain; R10.11 Right upper quadrant pain; E66.9 Obesity, unspecified; M25.569 Pain in unspecified knee; Z68.30 Body mass index [BMI] 30.0-30.9, adult; G89.29 Other chronic pain; Z85.3 Personal history of malignant neoplasm of breast | CPT/HCPCS: 99203 ==

== ENCOUNTER → 2023-02-18 10:32 | Outpatient (BNVA) | payer MEDICARE, SELFPAY | PROVIDERS: PCP Family Medicine; Visit Provider Internal Medicine Cardiovascular Disease | DX: R07.9 Chest pain, unspecified (principal); I12.9 Hypertensive chronic kidney disease with stage 1 through stage 4 chronic kidney disease, or unspecified chronic kidney disease; N18.2 Chronic kidney disease, stage 2 (mild); I25.10 Atherosclerotic heart disease of native coronary artery without angina pectoris; E78.1 Pure hyperglyceridemia | CPT/HCPCS: 99213 ==

== ENCOUNTER 2023-04-09 09:37 | Outpatient (CLI) | payer MEDICARE, SELFPAY ==
[2023-04-09 09:57] VITALS: BMI 29.7
--- NOTE | 2023-04-09 09:59 | NMCV_ITS ---
NM juliane perf SPECT r/s* [id number] Yoselin Brand Age: 82 Gender: F : 1940 Exam Date: 04/09/2023 09:59 Ordering Phys: Oswald Martinez MD ([email or web address]) Technologist: YONIS Tenorio Exam Location: [facility] Indications: CHEST PAIN STRESS TEST Please [facility] IMAGE PROTOCOL Rest/Stress 1 Lexiscan Day Radiopharmaceutical Dose (mCi) Administration Site Administered by Rest: Tc-99m 10.7 IV YONIS Arguello Sestamibi Stress:Tc-99m 32.2 IV YONIS Tenorio Sestamimelissa Rest: 09-Apr-2023 60 Discovery 630 Stress: 09-Apr-2023 30 Discovery 630 0.4mg Lexiscan. Supine position only as patient was unable to lay prone. SPECT RESULTS Technical Quality: Excellent Raw Data Analysis: Normal Image Corrections: No attenuation or motion correction applied Summed Stress Score: 7 Summed Rest Score: 14 Summed Difference Score: 0 PERFUSION FINDINGS Moderate area of minimal to moderately decreased tracer uptake was noted involving the inferior, inferolateral and apical lateral region. No significant reversibility was noted in these regions. FUNCTIONAL RESULTS (calculated via Gated SPECT) Stress Image LV EF (%): 86 Stress EDV (mL):69 TID: 0.7 Stress ESV (mL):10 FUNCTIONAL FINDINGS: Segmental wall motion analysis revealing no gross wall motion abnormalities IMPRESSIONS 1. Myocardial perfusion imaging revealing moderate area of minimal to moderately decreased persistent tracer uptake involving the inferior, inferolateral and apical regions suggesting myocardial scarring versus attrition artifact 2. Normal LV ejection fraction of 86%. 3. LV wall motion analysis revealing no gross wall motion abnormalities. 4. Normal LV volume, end-systolic volume of 10 ml Low probability for coronary ischemia, based on the above findings Dr Corky Chua MD [facility] (Electronically Signed) Final Date: 09 April 2023 14:56 S
--- NOTE | 2023-04-09 09:59 | ECG_ITS ---
[facility] Test Date: 2023-04-09 Pat Name: Yoselin Brand Department: Room: Gender: Female Intern: Esthela Carbajal : 1940 Requested By: Oswald Martinez Order Number: [id number] Kourtney MD: Marta Wilder M.D. Interpretive Statements NAME OF STUDY: LEXISCAN SESTAMIBI STRESS TEST INDICATION: Chest Pain PROCEDURE: At the baseline, the blood pressure was 154/58 mmHg with a heart rate of 63 bpm. The electrocardiogram showed sinus rhythm, normal axis with nonspecific ST-T wave changes in lateral leads. ??? The Lexiscan was infused over a period of 20 seconds. A total of 0.4 milligrams of Lexiscan was infused. The stress phase was continued for a total of 5 minutes. Heart rate at the end of the stress phase was 84 beats per min with a blood pressure of 182/43 mm Hg. The EKG at the peak infusion revealed sinus rhythm with no significant ST-T wave changes. The study was terminated due to protocol completion. ??? Sestamibi was injected 20 seconds after the Lexiscan infusion. ??? Blood pressure at the end of the recovery phase was 180/50 mm Hg with a heart rate of 79 beats per minute. ??? CONCLUSION: 1. No significant EKG changes with the LexiScan infusion. 2. No LexiScan induced chest pain or cardiac arrhythmia. 3. Normal blood pressure and heart rate response. 4. Sestamibi/sestamibi perfusion scan pending; see separate report. Electronically Signed On 04-12-2023 11:57:22 WEB DEVELOPMENT CONSULTANT by Marta Wilder M.D. [id number]
[2023-04-09] MEDS: regadenoson 0.4 Mg/5 ml Syringe IVP (11:32)
[2023-04-09 11:52] VITALS: BP 180/50; PULSE 76
--- NOTE | 2023-04-09 11:59 | PC.NURSE ---
Back pain 7 minutes into recovery from Lexiscan mibi, pt reported lower back pain 8/10. Assisted with changing position. Pt reports pain radiating down anterior side of bilateral legs. Reports has chronic back pain, but has never been this bad Assisted patient with positioning and ambulating, pain persists. Offered to escort patient to ER due to severity of pain. Denies need for ER. Pt gait unsteady first few steps out of bed.
== END 2023-04-09 09:38 | disposition home or self-care (01) ==
PROVIDERS: PCP Family Medicine; Visit Provider Internal Medicine Cardiovascular Disease
DX: R07.9 Chest pain, unspecified (principal)
CPT/HCPCS: 36415; 78452; 93017; 96374; A9500; J2785

== ENCOUNTER 2023-10-23 09:24 | Outpatient (CLI) | payer MEDICARE, SELFPAY ==
--- NOTE | 2023-10-23 09:42 | XRR_ITS ---
PROCEDURE INFORMATION: Exam: XR Left Elbow Exam date and time: 10/23/2023 9:48 AM Age: 83 years old Clinical indication: Injury or trauma; Fall; Blunt trauma (contusions or hematomas); Elbow; Left; Injury date: 10/06/23; Additional info: Elbow pain left TECHNIQUE: Imaging protocol: Radiologic exam of the left elbow. Views: 1 or 2 views. COMPARISON: CR XR elbow LT min 3V* [id number] 09/07/2020 8:33 AM FINDINGS: Bones/joints: Prominent arthritic changes are noted with severe loss of joint space throughout the entire elbow joint. I see no fracture or joint effusion. Metallic plates and screws are noted in the radius and ulna. Soft tissues: Normal. XR/XR elbow LT 2V [id number] IMPRESSION: 1. No acute findings. 2. Arthritic changes noted
--- NOTE | 2023-10-23 09:42 | XRR_ITS ---
PROCEDURE INFORMATION: Exam: XR Sacrum and Coccyx, 2 or More Views Exam date and time: 10/23/2023 9:48 AM Age: 83 years old Clinical indication: Injury or trauma; Fall; Blunt trauma (contusions or hematomas); Additional info: Tailbone pain after fall TECHNIQUE: Imaging protocol: XR of the sacrum and coccyx, 2 or more views. COMPARISON: CT angio chest w abd pel w con 07/17/2021 8:40 PM FINDINGS: Bones/joints: There is posterior deviation of the coccyx related to the proximal portion of the sacrum. This may represent an acute displaced fracture. Soft tissues: Normal. XR/XR sacrum coccyx min 2V [id number] IMPRESSION: Probable coccyx fracture
--- NOTE | 2023-10-23 09:42 | XRR_ITS ---
PROCEDURE INFORMATION: Exam: XR Cervical Spine Exam date and time: 10/23/2023 9:48 AM Age: 83 years old Clinical indication: Injury or trauma; Fall; Blunt trauma; Injury date: 10/06/23; Additional info: Neck pain after fall TECHNIQUE: Imaging protocol: Radiologic exam of the cervical spine. Views: 4 or 5 views. COMPARISON: CT chest w con* [id number] 07/23/2022 2:07 PM FINDINGS: Bones/joints: There is multilevel degenerative disc disease along with vertebral body spurring and facet arthropathy. No fracture or subluxation. Soft tissues: Unremarkable. XR/XR cervical spine 4-5V [id number] IMPRESSION: Multilevel arthritic changes without fracture
== END 2023-10-23 09:25 | disposition home or self-care (01) ==
PROVIDERS: PCP Family Medicine; Visit Provider Family Medicine
DX: M25.522 Pain in left elbow (principal); M53.3 Sacrococcygeal disorders, not elsewhere classified; M54.2 Cervicalgia; M47.819 Spondylosis without myelopathy or radiculopathy, site unspecified; M25.78 Osteophyte, vertebrae
CPT/HCPCS: 72050; 72220; 73070

== ENCOUNTER 2024-09-23 11:06 | Outpatient (CLI) | payer MEDICARE, SELFPAY ==
--- NOTE | 2024-09-23 11:14 | XR_ITS ---
WS: [id number] Exam: XR shoulder RT min 2V* [id number] Date/Time of Exam: 09/23/2024 11:40 AM Reason For Exam: Shoulder pain right No acute fracture or dislocation. Mild degenerative change of the AC joint and glenohumeral joint. Osteopenia. Unremarkable soft tissues. XR/XR shoulder RT min 2V* [id number] IMPRESSION: 1. Mild degenerative change and osteopenia.
--- NOTE | 2024-09-23 11:14 | XR_ITS ---
WS: [id number] Exam: XR ribs LT 2V* [id number] Date/Time of Exam: 09/23/2024 11:40 AM Reason For Exam: Left rib pain No acute LEFT rib fracture. Old healed fracture of the posterior LEFT second rib. LEFT lung is fully inflated and clear. No pleural or pulmonary reactive changes. XR/XR ribs LT 2V* [id number] IMPRESSION: 1. No acute LEFT rib fracture or pneumothorax. Old second LEFT rib fracture.
--- NOTE | 2024-09-23 11:14 | XR_ITS ---
WS: [email or web address] Exam: XR hip BI 3-4V wo/w pel [id number] Date/Time of Exam: 09/23/2024 11:40 AM Reason For Exam: Bilateral hip pain L>R after fall There is mild degenerative narrowing of both hips. This pattern is bilaterally symmetrical. No fracture noted. Normal bilateral soft tissues. The pelvis is intact. XR/XR hip BI 3-4V wo/w pel [id number] IMPRESSION: 1. Mild bilateral symmetrical hip DJD. No fracture.
== END 2024-09-23 11:07 | disposition home or self-care (01) ==
PROVIDERS: PCP Family Medicine; Visit Provider Family Medicine
DX: M16.0 Bilateral primary osteoarthritis of hip (principal); R07.81 Pleurodynia; M19.011 Primary osteoarthritis, right shoulder; E55.9 Vitamin D deficiency, unspecified; Z00.00 Encounter for general adult medical examination without abnormal findings; Z51.81 Encounter for therapeutic drug level monitoring; E03.9 Hypothyroidism, unspecified; Z13.6 Encounter for screening for cardiovascular disorders; M85.88 Other specified disorders of bone density and structure, other site; Z87.81 Personal history of (healed) traumatic fracture
CPT/HCPCS: 71100; 73030; 73522; 80053; 80061; 82306; 84439; 84443; 85025

== ENCOUNTER 2024-10-29 14:56 | Outpatient (CLI) | payer MEDICARE, SELFPAY ==
--- NOTE | 2024-10-29 15:30 | XR_ITS ---
WS: [id number] DEXA (DUAL ENERGY X-RAY ABSORPTIOMETRY) Bone mineral density was performed using a [facility] machine. HISTORY: Postmenopausal - screening for osteoporosis COMPARISON: None available. Lumbar spine BMD (L1-L4): 1.135 g/cm2 T score: -0.4 Z score: 1.3 Total hip BMD: Left: 0.839 g/cm2. T score: -1.3 Z score: 0.7 Right: 0.771 g/cm2. T score: -1.9 Z score: 0.2 10 year probability of a major osteoporotic fracture is 17.3%. XR/XR DEXA axial skeleton* [id number] IMPRESSION: OSTEOPENIA based upon the WHO classification for females.
== END 2024-10-29 14:57 | disposition home or self-care (01) ==
PROVIDERS: PCP Family Medicine; Visit Provider Family Medicine
DX: Z13.820 Encounter for screening for osteoporosis (principal); Z78.0 Asymptomatic menopausal state; M85.80 Other specified disorders of bone density and structure, unspecified site
CPT/HCPCS: 77080

== ENCOUNTER → 2025-01-28 11:01 | Outpatient (BNVA) | payer MEDICARE, SELFPAY | PROVIDERS: PCP Family Medicine; Visit Provider Family Medicine | DX: E55.9 Vitamin D deficiency, unspecified (principal); Z51.81 Encounter for therapeutic drug level monitoring; E03.9 Hypothyroidism, unspecified; Z13.6 Encounter for screening for cardiovascular disorders | CPT/HCPCS: 80053; 80061; 82306; 84439; 84443; 85025 ==

== ENCOUNTER 2025-02-15 08:10 | Outpatient (CLI) | payer MEDICARE, SELFPAY ==
--- NOTE | 2025-02-15 08:20 | ECG_ITS ---
[employer] Test Date: 2025-02-15 Pat Name: Yoselin Brand Department: Room: Gender: Female [employer] Repairer: : 1940 Requested By: El Munoz Order Number: [id number] Kourtney MD: Reuben Brito M.D. Interpretive Statements LEXISCAN SESTAMIBI STRESS TEST Procedure: At the baseline, the blood pressure was 184/75 mmHg with a heart rate of 65 bpm. The electrocardiogram showed normal sinus rhythm, normal axis with normal ST and T's. The Lexiscan was infused over a period of 20 seconds. A total of 0.4 mg of Lexiscan was infused. The stress phase was continued for a total of 5 minutes. Heart rate was at the end of stress phase was 71 bpm and a blood pressure of 154/64 mmHg. The EKG at the peak infusion revealed normal sinus rhythm with no significant ST-T wave changes. Sestamibi was injected 20 seconds after the Lexiscan infusion. Blood pressure at the end of recovery phase was 158/67 mmHg with a heart rate of 69 bpm. Conclusion: 1. Normal EKG response to Lexiscan infusion 2. No Lexiscan induced chest pain or cardiac arrhythmia. 3. Normal blood pressure and heart rate response. 4. Sestamibi/sestamibi perfusion scan pending; see separate report. Electronically Signed On 02-21-2025 15:00:39 CDT by Reuben Brito M.D. [email or web address]
--- NOTE | 2025-02-15 08:22 | NMCV_ITS ---
NM juliane perf SPECT r/s* [id number] Yoselin Brand Age: 84 Gender: F : 1940 Exam Date: 02/15/2025 09:17 Ordering Phys: El Kapoor MD Technologist: YOINS Sapp Exam Location: [facility] Indications: cp STRESS TEST Please see separate stress test report in [facility] for full findings IMAGE PROTOCOL Rest/Stress 1 Lexiscan Day Radiopharmaceutical Dose (mCi) Administration Site Administered by Rest: Tc-99m 10.3 IV YONIS Sapp Sestamibi Stress:Tc-99m 32.4 IV YONIS Arguello Sestamibi Rest: 15-Feb-2025 60 Discovery 630 Stress: 15-Feb-2025 30 Discovery 630 0.4mg Lexiscan. Supine position only as patient was unable to lay prone. SPECT RESULTS Technical Quality: Good Raw Data Analysis: Normal Image Corrections: No attenuation or motion correction applied Summed Stress Score: 4 Summed Rest Score: 8 Summed Difference Score: 0 PERFUSION FINDINGS There is a small sized area of fixed perfusion defect seen in the inferolateral wall. 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 No significant ischemia is seen. FUNCTIONAL RESULTS (calculated via Gated SPECT) Stress Image LV EF (%): 82 Stress EDV (mL):77 TID: 0.84 Stress ESV (mL):14 FUNCTIONAL FINDINGS: There is normal left ventricular systolic function. IMPRESSIONS 1. 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 No evidence of ischemia 2. LV systolic function is normal Reuben Brito MD (Electronically Signed) Final Date: 15 February 2025 10:50 S
[2025-02-15 08:31] VITALS: BMI 27.8
[2025-02-15 09:57] VITALS: BP 158/61; PULSE 70
== END 2025-02-15 08:11 | disposition home or self-care (01) ==
PROVIDERS: PCP Family Medicine; Visit Provider Family Medicine
DX: R07.9 Chest pain, unspecified (principal); R93.1 Abnormal findings on diagnostic imaging of heart and coronary circulation
CPT/HCPCS: 36415; 78452; 93017; 96374; A9500; J2785

== ENCOUNTER → 2025-04-12 11:00 | Outpatient (BNVA) | payer MEDICARE, SELFPAY | PROVIDERS: PCP Family Medicine; Visit Provider Internal Medicine Cardiovascular Disease | DX: R07.9 Chest pain, unspecified (principal); I10 Essential (primary) hypertension; I70.0 Atherosclerosis of aorta; R55 Syncope and collapse | CPT/HCPCS: 99214 ==